=== PATIENT | female | born 1965 | race African-American/Black ===

== ENCOUNTER 2020-09-25 02:57 | Emergency (ER) | payer BC, OTHER ==
[2020-09-25 03:07] VITALS: TEMP 98.1; BMI 25.2
[2020-09-25 03:39] VITALS: PULSE 85
[2020-09-25 04:17] LABS: BASO % 0.6 % (0-2.0); EOS % 0.6 % (0-4.5); HEMOGLOBIN 13.5 GM/dL (10.7-15.3); LYMPH % 19.3 % (8-40); MCHC 34.6 g/dl (32.0-36.0); MEAN CELL VOLUME 92.4 fl (80-96); MEAN PLT VOLUME 8.4 fl (7.5-11.1); NEUT % 71.5 % (42.8-82.8); PLATELET COUNT 311 K/MM3 (134-434); RBC 4.22 M/mm3 (3.60-5.2); RDW 12.6 % (11.6-15.6); WHITE BLOOD COUNT 6.4 K/mm3 (4.0-10.0)
[2020-09-25 04:35] LABS: SODIUM 139 mmol/L (136-145)
[2020-09-25 04:37] LABS: CALCIUM 9.8 mg/dL (8.5-10.1)
[2020-09-25 04:38] LABS: ALBUMIN 4.2 g/dl (3.4-5.0); BLOOD UREA NITROGEN 13.4 mg/dL (7-18); CO2 25 mmol/L (21-32); GLUCOSE,RANDOM 129 mg/dL (74-106)
[2020-09-25 04:40] VITALS: BP 133/87
[2020-09-25 04:42] LABS: BILIRUBIN,TOTAL 0.6 mg/dL (0.2-1); SGOT/AST 17 U/L (15-37); SGPT/ALT 30 U/L (13-61); TOT PROT 7.5 g/dl (6.4-8.2)
[2020-09-25 04:46] LABS: ALK PHOS 90 U/L (45-117)
[2020-09-25 04:54] LABS: ANION GAP 7 MMOL/L (8-16); CHLORIDE 108 mmol/L (98-107); CREATININE 0.7 mg/dL (0.55-1.3)
== END 2020-09-25 05:18 | disposition home or self-care (01) ==
LOC: FER 02:57
DX: R07.9 Chest pain, unspecified (principal)
CPT/HCPCS: 36415; 80053; 84484; 85025; 93005; 99284-25

== ENCOUNTER 2021-01-22 02:16 | Emergency (ER) | payer BC ==
[2021-01-22 02:23] VITALS: BP 153/107; PULSE 73; TEMP 98; BMI 25.2
[2021-01-22 03:56] LABS: URINE APPEARANCE CLEAR; URINE BILIRUBIN NEGATIVE (NEGATIVE); URINE COLOR YELLOW; URINE GLUCOSE (UA) NEGATIVE (NEGATIVE); URINE KETONE NEGATIVE (NEGATIVE); URINE LEUK ESTERASE NEGATIVE (NEGATIVE); URINE NITRITE NEGATIVE (NEGATIVE); URINE PROTEIN NEGATIVE (NEGATIVE)
[2021-01-22 04:03] LABS: BASO % 0.5 % (0-2.0); EOS % 1.5 % (0-4.5); HEMOGLOBIN 13.9 GM/dL (10.7-15.3); LYMPH % 23.2 % (8-40); MCH 32.2 pg (25.7-33.7); MCHC 35.5 g/dl (32.0-36.0); MEAN CELL VOLUME 90.6 fl (80-96); NEUT % 65.8 % (42.8-82.8); PLATELET COUNT 306 10^3/uL (134-434); RBC 4.31 M/mm3 (3.60-5.2); RDW 12.6 % (11.6-15.6); WHITE BLOOD COUNT 8.4 K/mm3 (4.0-10.0)
[2021-01-22 04:32] LABS: CALCIUM 9.6 mg/dL (8.5-10.1)
[2021-01-22 04:33] LABS: ALBUMIN 3.8 g/dl (3.4-5.0); BLOOD UREA NITROGEN 13.8 mg/dL (7-18)
[2021-01-22 04:35] LABS: CREATININE 0.8 mg/dL (0.55-1.3)
[2021-01-22 04:37] LABS: BILIRUBIN,TOTAL 0.3 mg/dL (0.2-1); TOT PROT 7.1 g/dl (6.4-8.2)
[2021-01-22] MEDS ORDERED: MAGNESIUM CITRATE 300 ML BOTTLE PO ONE (04:44)
[2021-01-22] MEDS ORDERED: MAGNESIUM CITRATE 300 ML BOTTLE ONE (04:46)
== END 2021-01-22 04:53 | disposition home or self-care (01) ==
LOC: FER 02:16
DX: K59.00 Constipation, unspecified (principal)
CPT/HCPCS: 36415; 74019-TC-FY; 80053; 81003; 85025; 99284-25

== ENCOUNTER → 2023-11-18 | Day surgery (SDC) | payer BC ==
[2023-11-17 09:54] VITALS: BMI 24.3
[~2023-11-18] MED LIST: ACETAMINOPHEN 500 MG TABLET (FP) PO PRN; DEXAMETHASONE SOD PHOSPHATE 10 MG/1 ML VIAL ONE; LIDOCAINE HCL/PF 1% SDV 5ML VIAL ONE
[2023-11-18] MEDS: DEXAMETHASONE SOD PHOSPHATE 10 MG/1 ML VIAL IVPUSH ONE
[2023-11-18] MEDS: IOHEXOL 180 MG/1 ML ML IJ ONE
[2023-11-18] MEDS: LIDOCAINE 1% P/F 10 MG/ML VIAL PNB ONE
[2023-11-18 10:28] VITALS: PULSE 63; RESP 18
[2023-11-18 11:55] VITALS: BP 122/74; TEMP 98.3
== END | disposition home or self-care (01) ==
LOC: JASU-SURG 04:33
PROVIDERS: ATTEND Pain Medicine Pain Medicine
PROC: 3E0R3BZ Introduction of Anesthetic Agent into Spinal Canal, Percutaneous Approach (ICD-10-PCS; 2023-11-18)
PROC: 3E0R33Z Introduction of Anti-inflammatory into Spinal Canal, Percutaneous Approach (ICD-10-PCS; principal; 2023-11-18 14:15)
DX: M54.16 Radiculopathy, lumbar region (principal)
CPT/HCPCS: 76000-TC-FY; J1100; J2597

== ENCOUNTER 2023-12-17 04:11 | Day surgery (SDC) | payer BC ==
[2023-12-16 09:37] VITALS: BMI 24.2
[2023-12-17] MEDS ORDERED: LIDOCAINE HCL/PF 1% SDV 5ML VIAL ONE (07:20)
[2023-12-17] MEDS ORDERED: DEXAMETHASONE SOD PHOSPHATE 10 MG/1 ML VIAL ONE (07:21)
[2023-12-17 07:45] VITALS: RESP 16
[2023-12-17] MEDS: DEXAMETHASONE SOD PHOSPHATE 10 MG/1 ML VIAL IVPUSH ONE (09:32)
[2023-12-17] MEDS: IOHEXOL 180 MG/1 ML ML IJ ONE (09:32)
[2023-12-17] MEDS: LIDOCAINE 1% P/F 10 MG/ML VIAL PNB ONE (09:33)
[2023-12-17 09:59] VITALS: BP 118/82; PULSE 64; TEMP 97.7
[2023-12-17] MEDS ORDERED: LOSARTAN 50MG/HCTZ 12.5MG 1 TAB PO SCH (10:00)
== END 2023-12-17 10:40 | disposition home or self-care (01) ==
LOC: JASU-SURG 04:11
PROVIDERS: ATTEND Pain Medicine Pain Medicine
PROC: 3E0R3BZ Introduction of Anesthetic Agent into Spinal Canal, Percutaneous Approach (ICD-10-PCS; 2023-12-17)
PROC: 3E0R33Z Introduction of Anti-inflammatory into Spinal Canal, Percutaneous Approach (ICD-10-PCS; principal; 2023-12-17 08:30)
DX: M54.16 Radiculopathy, lumbar region (principal)
CPT/HCPCS: 76000-TC-FY; J1100; J2597

== ENCOUNTER 2024-03-31 04:17 | Day surgery (SDC) | payer BC ==
[2024-03-30 15:30] VITALS: BMI 24.8
[2024-03-31 08:50] VITALS: TEMP 97.7
[2024-03-31] MEDS ORDERED: ACETAMINOPHEN 500 MG TABLET (FP) PO PRN (09:08)
[2024-03-31] MEDS: DEXAMETHASONE SOD PHOSPHATE 10 MG/1 ML VIAL IM ONE (11:13)
[2024-03-31] MEDS: LIDOCAINE HCL 1%, 10 MG/ML (20ML VIAL) INF ONE (11:13)
[2024-03-31] MEDS: IOHEXOL 180 MG/1 ML ML IJ ONE (11:19)
[2024-03-31 13:07] VITALS: BP 107/64; PULSE 65; RESP 18
== END 2024-03-31 12:25 | disposition home or self-care (01) ==
LOC: JASU-SURG 04:17
PROVIDERS: ATTEND Pain Medicine Pain Medicine
PROC: 3E0R3BZ Introduction of Anesthetic Agent into Spinal Canal, Percutaneous Approach (ICD-10-PCS; 2024-03-31)
PROC: 3E0R33Z Introduction of Anti-inflammatory into Spinal Canal, Percutaneous Approach (ICD-10-PCS; principal; 2024-03-31 09:15)
DX: M54.16 Radiculopathy, lumbar region (principal)
CPT/HCPCS: 76000-TC-FY; J1100; J2597